=== PATIENT | female | born 1950 | race African-American/Black ===

== ENCOUNTER 2024-05-20 12:44 | Emergency (ER) | payer MEDICARE ==
[~2024-05-20] VITALS: Ht 154.9 cm; Wt 73.5 kg
[~2024-05-20 12:44] MED LIST: CYCLOBENZAPRINE10 MG PO; CYCLOBENZAPRINE5 MG PO; HYDROCODON-ACE1 EA11 PO; NAPROXEN250 MG PO; ULTRAM 50MG50 MG PO
[2024-05-20 13:13] VITALS: PULSE 68; TEMP 98.6
[2024-05-20 16:15] VITALS: RESP 16; O2SAT 99
== END 2024-05-20 16:15 | disposition home or self-care (01) ==
LOC: ER 13:55
DX: S00.83XA Contusion of other part of head, initial encounter (principal); M25.511 Pain in right shoulder; M54.2 Cervicalgia; M54.6 Pain in thoracic spine; M54.50 Low back pain, unspecified; W01.0XXA Fall on same level from slipping, tripping and stumbling without subsequent striking against object, initial encounter; Y93.01 Activity, walking, marching and hiking; Y92.89 Other specified places as the place of occurrence of the external cause; I10 Essential (primary) hypertension; E11.9 Type 2 diabetes mellitus without complications; E78.5 Hyperlipidemia, unspecified
CPT/HCPCS: 70450; 72125; 72128; 72131; 99283